=== PATIENT | male | born 1960 | race Native Hawaiian/Other Pacific Islander ===

== ENCOUNTER 2024-12-21 08:17 | Outpatient (AMB) | payer OTHER, SELFPAY ==
[2024-12-21 08:19] VITALS: BP 150/80; PULSE 65; RESP 20; TEMP 36.6; O2SAT 98; BMI 31.2
--- NOTE | 2024-12-21 08:19 | MHC.PC.OV ---
Vital Signs 12/21/24 08:19 12/21/24 09:10 Height 6 ft Weight 230 lb BMI 31.2 BP 150/80 H 140/76 H Blood Pressure Location Lt brachial Rt brachial Position Sitting Sitting Respiration 20 Pulse 65 Pulse Source Pulse Oximeter Temp 97.9 F Temp Source Oral Pulse Oximetry (%) 98 Oxygen Delivery Method Room Air Intake Visit Reasons: Follow up. Intake Note: Pt is here today for follow up visit. Allergies salmon oil Allergy (Verified 12/21/24 08:19) Hives Medication List - Last Reconciled 12/21/24 by Trey Pang, POULTRY CULLER- lisinopril 20 mg PO DAILY 90 days simvastatin 20 mg PO BEDTIME Tobacco use date assessed: 12/21/24 Dental Screening Dental Screen Date: 12/21/24 Did you have a dental visit in the last 12 months?: Yes Did you have a dental problem in the last 6 months where you did not have access to dental care?: No Was dental information given to patient?: Patient has dentist HPI Follow up. HPI Details Chief Complaint Follow-up regarding hypertension History of Present Illness The patient is a 64-year-old male presenting with concerns mainly related to the management of his hypertension. He has not routinely utilized his home blood pressure monitoring device, which is crucial for his management plan. He denies symptoms such as chest pain, respiratory distress, dizziness, visual disturbances, and headaches at this time. The importance of regular monitoring and logging of his blood pressure has been discussed, and he intends to begin this process imminently, with updates to be provided via the portal. #2 cerumen noted bilat. Pt has been using the ear wax kit at home with little results. Social History Health Maintenance - Encouraged use of home blood pressure monitor for regular monitoring and recording of blood pressure readings. Review of Systems - Cardiovascular: Denies chest pain. - Respiratory: Denies shortness of breath. - Neurological: Denies dizziness, headache, weird vision. - Musculoskeletal: Denies swelling of lower extremities. Physical Exam General: Cooperative, healthy appearing, comfortable, no acute distress and well developed Orientation: Patient oriented x3 Limitations: No limitations Head: Normal to inspection Ears: Hearing grossly normal bilaterally, cerumen noted bilat, after ear lavage and use of currette, small residual piece of cerumen noted to right ear canal Nose: Normal external nose present Face and sinus: Normal facial exam Eyes: Appearance normal, both eyes and all related structures Neck: Normal visual inspection and Yes full ROM Respiratory: Normal respiratory effort and able to speak in complete sentences. Clear to auscultation bilaterally Cardiovascular: Regular rate and rhythm. Normal S1 and S2 GI: Normal to inspection. Soft to palpation and nontender Skin: No rashes or lesions noted Neuro: Patient oriented x3 Extremities: Normal to inspection Results Plan Regular monitoring of the patient's blood pressure using a home device was stressed to manage his essential hypertension effectively. Currently, the patient is asymptomatic, which underscores the importance of consistent monitoring to preemptively identify and address any potential issues with blood pressure control. He was advised to initiate this practice immediately and agreed to log the results and send them through the patient portal for ongoing assessment and management continuity. Discussion Notes I discussed with the patient the importance of adhering to regular blood pressure monitoring for optimal management of his essential hypertension, emphasizing the benefits of being proactive in controlling blood pressure and preventing potential complications. The patient has a clear plan to commence recording his blood pressure and sharing the data through our communication portal to facilitate thorough follow-up. The approach was well received, and the patient consented to all recommendations made. Patient Instructions - Begin using your home blood pressure cuff to measure your blood pressure regularly. - Write down your blood pressure readings and bring them to the next appointment or send them via the patient portal. - Contact the medical office if you experience any chest pain, shortness of breath, dizziness, or significant changes in your health. [facility] Medical History (Updated 12/21/24 @ 09:16 by Trey Pang [facility]) Sleep apnea Dyslipidemia HTN (hypertension) Surgical History (Updated 11/05/24 @ 11:38 by Corazon Santamaria) No pertinent past surgical history Social History (System 11/05/24 @ 11:38 by Corazon Santamaria) Housing: House Patient Tobacco Use Status: Never used Tobacco e-Cigarette/Vaping Use: Never Used service: No Current occupational status: employed Current occupational exposures/hazards: No Cognitive needs: No Hearing needs: No Vision needs: No Questionnaire PHQ-9 Over the last 2 weeks, how often have you been bothered by any of the following problems? 1. Little interest or pleasure in doing things: not at all 2. Feeling down, depressed, or hopeless: not at all 3. Trouble falling or staying asleep, or sleeping too much: not at all 4. Feeling tired or having little energy: not at all 5. Poor appetite or overeating: not at all 6. Feeling bad about yourself - or that you are a failure or have let yourself or your family down: not at all 7. Trouble concentrating on things, such as reading the newspaper or watching television: not at all 8. Moving or speaking so slowly that other people could have noticed. Or the opposite - being so fidgety or restless that you have been moving around a lot more than usual: not at all 9. Thoughts that you would be better off or of hurting yourself in some way: not at all Total score: 0 Depression Screening Interpretation: Negative Depression Screening Done: Yes 00706 - PHQ-9 Billing: Yes Source: Developed by Drs. Nikko Christie, Eloisa Dukes, Tacos Jones and colleagues, with an educational jose l from [employer]. Thrive Questionnaire Date Thrive assessed: 12/21/24 I am a: Patient What is your living situation today?: I have a steady place to live Within the past 12 months, did the food you bought not last and you didn't have the money to get more?: Never true Within the past 12 months, did you worry whether your food would run out before you got money to buy more?: Never true Do you have trouble paying for medicines?: No Do you have trouble getting transportation to medical appointments?: No Do you have trouble paying your heating and electricity bill?: No Do you have trouble taking care of your child, family member or friend?: No Do you have trouble with day-to-day activities such as bathing, preparing meals, shopping, managing finances, etc.?: No Are you currently unemployed and looking for a job?: No Are you interested in more education?: No Please select the resources that you would like help with: None Currently or been in a relationship where the following occur: No concerns reported THRIVE Score: 0 AUDIT C Alcohol Use Questionnaire (AUDIT-C) 1. How often do you have a drink containing alcohol?: 2-3 times a week 2. How many drinks containing alcohol do you have on a typical day when you are drinking?: 3 or 4 3. How often do you have six or more drinks on one occasion?: Less than monthly Total Score: 5 GEMA-7 AMB Questionnaire GEAM-7 Date GEMA - 7 assessed: 12/21/24 Feeling nervous, anxious, or on edge: 0 = Not at all Not being able to stop or control worryin = Not at all Worrying too much about different things: 0 = Not at all Trouble relaxin = Not at all Being so restless that it is hard to sit still: 0 = Not at all Becoming easily annoyed or irritable: 1 = Several days Feeling afraid as if something awful might happen: 0 = Not at all Total GEMA-7 score (0-4 normal; 5-9 mild; 10-14 moderate; 15-21 severe): 1 Source: Developed by Drs. Nikko Christie, Eloisa Dukes, Tacos Jones and colleagues, with an educational jose l from [employer]. GEMA-7 Assessment Billing GEMA-7 Assessment Tool: GEMA-7 Assessment 11389 Physical exam (Primary Care) Vital Signs: Last Vital Signs Temp 97.9 F 12/21/24 08:19 Pulse 65 12/21/24 08:19 Resp 20 12/21/24 08:19 BP 140/76 H 12/21/24 09:10 Pulse Ox 98 12/21/24 08:19 Oxygen Delivery Method Room Air 12/21/24 08:19 BMI result Body Mass Index 31.2 Tobacco/Smoking Status: Tobacco use Status Tobacco use date assessed 12/21/24 12/21/24 08:20 Patient Tobacco Use Status Never used Tobacco 12/21/24 08:20 e-Cigarette/Vaping Use Never Used 12/21/24 08:35 PHQ-9: PHQ-9 Score PHQ-9: Total score 0 12/21/24 09:10 Depression Screening Interpretation: Negative Thrive Assessment: Date of Thrive Assessment Date Thrive assessed 12/21/24 12/21/24 08:20 Currently or been in a relationship where the following occur: No concerns reported Office Procedures Cerumen Removal From which ear canal was the cerumen removed: bilateral Removal: irrigation and cerumen loop/spoon Notes: patient tolerated procedure well and no complications 33032-Vva Wax Removal by Spoon/Curette (ear lavage and currette. small piece of cerumen remains to right ear canal. pt will cont with use of drops. TM easily seen to left) Coding Level of Care Code Est Pt Level 3 (77411) Diagnoses HTN (hypertension) I10 Cerumen debris on tympanic membrane of both ears H61.23 CPT Codes Office Procedure - CPT: 67734-Lto Wax Removal by Spoon/Curette ([id number]) Additional Codes GEMA-7 Assessment Billing - GEMA-7 Assessment Tool: GEMA-7 Assessment 36367 ([id number]) PHQ-9 - 56811 - PHQ-9 Billing: Yes ([id number]) Assessment & Plan Assessment & Plan (1) HTN (hypertension): Code(s): I10 - Essential (primary) hypertension Category: Medical (2) Cerumen debris on tympanic membrane of both ears: Code(s): H61.23 - Impacted cerumen, bilateral Category: Medical Plan . Orders: Orders TSH reflex Free T4 Today I10 - Essential (primary) hypertension UA CC w/rflx Micro + Cult Today I10 - Essential (primary) hypertension Lipid Panel Today I10 - Essential (primary) hypertension Complete Blood Count Auto Diff Today I10 - Essential (primary) hypertension Comprehensive Wagoner. Panel Fast Today I10 - Essential (primary) hypertension
[2024-12-21 09:10] VITALS: BP 140/76
== END 2024-12-21 09:45 | disposition home or self-care (01) ==
PROVIDERS: PCP Nurse Practitioner Family; Visit Provider Nurse Practitioner Family
DX: I10 Essential (primary) hypertension (principal); H61.23 Impacted cerumen, bilateral

== ENCOUNTER → 2024-12-21 08:17 | Outpatient (BNVA) | payer OTHER, SELFPAY | PROVIDERS: PCP Nurse Practitioner Family; Visit Provider Nurse Practitioner Family | DX: I10 Essential (primary) hypertension (principal); H61.23 Impacted cerumen, bilateral | CPT/HCPCS: 69210; 96127 ==

== ENCOUNTER 2025-01-14 09:25 | Outpatient (REF) | payer OTHER, SELFPAY ==
--- OUTSIDE RECORDS SUMMARY | 2025-01-14 10:02 | XMS_ITS | Encounter Summary ---
Author Organization [facility] Address [address] [place] [address] Care Team Providers Care Associate Dean Of Women Name Role Phone Nishant Mario MD Primary Care Provider [phone] Shamir Henley PA-C Primary Care Provider [phone] [facility], Pcp Primary Care Provider Unavailabl e Reason for Visit * Reason Onset Date Comments Medication 10/05/2020 colon Encounter Details Date Type Department Care Team Description 10/05/2020 Refill Gastroenterology - [address] [place] [address] Javon Hutchison MD [address] [place] [address] [phone] Medication (colon) Social History Tobacco Use Types Packs/Day Years Used Date Smoking Tobacco: Never Smokeless Tobacco: Never Alcohol Use Standard Drinks/Week Comments Yes 0 (1 standard drink = 0.6 oz pur e alcohol) occ Sex Assigned at Date Recorded Not on file documented as of this encounter Plan of Treatment Not on file documented as of this encounter Visit Diagnoses Not on filedocumented in this encounter Care Teams Associate Dean Of Women Relationship Specialty Start Date End Date Nishant Mario MD [address] [place] [address] [phone] PCP - General Internal Medicine 11/09/19 11/20/20 Shamir Henley PA-C [address] [place] [phone] PCP - General Internal Medicine 11/21/20 12/23/23 [facility], Pcp [address] [place] [phone] PCP - General Internal Medicine 12/24/23 documented as of this encounter
--- OUTSIDE RECORDS SUMMARY | 2025-01-14 10:02 | XMS_ITS | Encounter Summary ---
Author Organization [facility] Address [address] [place] [address] Care Team Providers Care Certified Appliance Service Technician Name Role Phone Piero Serrano MD Primary Care Provider Nishant Matt MD Primary Care Provider [phone] Shamir Henley PA-C Primary Care Provider [phone] [facility], Pcp Primary Care Provider Unavaillillie e Encounter Details Date Type Department Care Team Description 06/18/2018 Release of Information Medical Records [address] [place] [id number] Abstract, Provider Social History Tobacco Use Types Packs/Day Years Used Date Smoking Tobacco: Never Alcohol Use Standard Drinks/Week Comments Yes 0 (1 standard drink = 0.6 oz pur e alcohol) occ Sex Assigned at Date Recorded Not on file documented as of this encounter Plan of Treatment Not on file documented as of this encounter Visit Diagnoses Not on filedocumented in this encounter Care Teams Certified Appliance Service Technician Relationship Specialty Start Date End Date Piero Serrano MD PCP - General Internal Medicine 03/26/18 11/08/19 Nishant Mario MD [address] [place] [address] PCP - General Internal Medicine 11/09/19 11/20/20 Shamir Henley PA-C [address] [place] [address] PCP - General Internal Medicine 11/21/20 12/23/23 [facility], Pcp [address] [place] [phone] PCP - General Internal Medicine 12/24/23 documented as of this encounter
--- OUTSIDE RECORDS SUMMARY | 2025-01-14 10:02 | XMS_ITS | Encounter Summary ---
Author Organization [facility] Address [address] [place] [address] Care Team Providers Care Retail Loss Prevention Officer Name Role Phone Piero Serrano MD Primary Care Provider Nishant Matt MD Primary Care Provider [phone] Shamir Henley PA-C Primary Care Provider [phone] [facility], Pcp Primary Care Provider Unavaillillie e Encounter Details Date Type Department Care Team Description 02/13/2019 [facility] Report Medical Records [address] [place] [address] Yusef Westbrook MD Social History Tobacco Use Types Packs/Day Years Used Date Smoking Tobacco: Never Alcohol Use Standard Drinks/Week Comments Yes 0 (1 standard drink = 0.6 oz pur e alcohol) occ Sex Assigned at Date Recorded Not on file documented as of this encounter Plan of Treatment Not on file documented as of this encounter Visit Diagnoses Not on filedocumented in this encounter Care Teams Retail Loss Prevention Officer Relationship Specialty Start Date End Date Piero Serrano MD PCP - General Internal Medicine 03/26/18 11/08/19 Nishant Mario MD [address] [place] [address] [phone] PCP - General Internal Medicine 11/09/19 11/20/20 Shamir Henley PA-C [address] [place] [address] [phone] PCP - General Internal Medicine 11/21/20 12/23/23 [facility], Pcp [address] [place] [address] PCP - General Internal Medicine 12/24/23 documented as of this encounter
--- OUTSIDE RECORDS SUMMARY | 2025-01-14 10:02 | XMS_ITS | Encounter Summary ---
Author Organization [facility] Address [address] [place] [address] Care Team Providers Care Columnist/Commentator Name Role Phone Piero Serrano MD Primary Care Provider Nishant Matt MD Primary Care Provider [phone] Shamir Henley PA-C Primary Care Provider [phone] [facility], Pcp Primary Care Provider Unavailabl e Reason for Visit * Reason Onset Date Comments APPOINTMENT 10/12/2019 Encounter Details Date Type Department Care Team Description 10/12/2019 Telephone Pulmonology - [place] [address] [facility] [address] [place] [address] Ana Katz [facility] [address] [place] [address] APPOINTMENT Social History Tobacco Use Types Packs/Day Years Used Date Smoking Tobacco: Never Smokeless Tobacco: Never Alcohol Use Standard Drinks/Week Comments Yes 0 (1 standard drink = 0.6 oz pur e alcohol) occ Sex Assigned at Date Recorded Not on file documented as of this encounter Miscellaneous Notes * Telephone Encounter - Sadi Santamaria M.A. - 10/12/2019 4:43 PM EST Left message to call back and confirm appt for 10/14/2019 documented in this encounter Plan of Treatment Not on file documented as of this encounter Visit Diagnoses Not on filedocumented in this encounter Care Teams Columnist/Commentator Relationship Specialty Start Date End Date Piero Serrano MD PCP - General Internal Medicine 03/26/18 11/08/19 Nishant Mario MD [address] [place] [phone] PCP - General Internal Medicine 11/09/19 11/20/20 Shamir Henley PA-C [address] [place] [phone] PCP - General Internal Medicine 11/21/20 12/23/23 [facility], [address] [address] PCP - General Internal Medicine 12/24/23 documented as of this encounter
[2025-01-14 13:29] LABS: MANUAL DIFF FLAG NO
[2025-01-14 13:36] LABS: Basophils Percent Auto 0.7 % (0-2); Eosinophils Absolute Auto 0.2 X10*3/uL (0.0-0.4); Eosinophils Percent Auto 3.5 % (0-4); Hematocrit 43.3 % (42.0-52.0); Hemoglobin 14.8 g/dl (14.0-18.0); Imm Gran Abs Auto 0.02 X10*3/uL (0.00-0.03); Imm Gran Pct Auto 0.4 % (0.0-0.4); Lymphocytes Absolute Auto 1.8 X10*3/uL (1.2-4.9); Mean Corpuscular HGB Conc 34.2 g/dl (31.0-36.0); Mean Corpuscular Volume 90.6 fL (80.0-98.0); Mean Platelet Volume 9.5 fL (9.4-12.4); Monocytes Absolute Auto 0.4 X10*3/uL (0.1-1.2); Monocytes Percent Auto 7.5 % (2-11); Neutrophils Percent Auto 54.9 % (45-73); Platelet Count 382 X10*3/uL (160-400); Red Blood Count 4.78 X10*6/uL (4.60-5.80); Red Cell Distribution Width 13.6 % (11.0-16.0); White Blood Count 5.5 X10*3/uL (4.8-10.8)
[2025-01-14 13:58] LABS: Alanine Aminotransferase 18 U/L (0-40); Alkaline Phosphatase 44 U/L (39-117); Anion Gap 14 (12-20); Aspartate Amino Transferase 27 U/L (5-37); Bilirubin Total 0.4 mg/dL (0.0-1.0); Blood Urea Nitrogen 15 mg/dL (9-16); Carbon Dioxide 22 mmol/L (22-29); Chloride 111 mmol/L (96-108); Cholesterol 179 mg/dL (<200); Estimated Glomerular Filt Rate > 60; Glucose Fasting 96 mg/dL (60-99); HDL Cholesterol 55 mg/dL (>40); LDL Cholesterol Calculated 88 mg/dL (<100); Sodium 143 mmol/L (135-145); Total Protein 6.6 g/dL (6.5-8.0); Triglycerides 181 mg/dL (<150)
[2025-01-14 14:21] LABS: TSH reflex Free T4 0.69 uIU/mL (0.32-4.0)
== END 2025-01-14 09:26 | disposition home or self-care (01) ==
LOC: HO.HMGCLDS 09:25
PROVIDERS: PCP Nurse Practitioner Family; Visit Provider Nurse Practitioner Family
DX: I10 Essential (primary) hypertension (principal)
CPT/HCPCS: 36415; 80053; 80061; 84443; 85025

== ENCOUNTER 2025-01-15 07:20 | Outpatient (REF) | payer OTHER, SELFPAY ==
--- OUTSIDE RECORDS SUMMARY | 2025-01-15 08:24 | XMS_ITS | Encounter Summary ---
Author Organization [facility] Address [address] [place] [address] Care Team Providers Care Dependency Case Manager Name Role Phone Piero Serrano MD Primary Care Provider Nishant Matt MD Primary Care Provider [phone] Shamir Henley PA-C Primary Care Provider [phone] [facility], Pcp Primary Care Provider Unavailabl e Reason for Visit * Reason Comments E-prescribe Rx Request Encounter Details Date Type Department Care Team Description 06/23/2019 Refill Internal Medicine - [address], [address] [place] [address] Piero Serrano MD E-prescribe Rx Request Social History Tobacco Use Types Packs/Day Years Used Date Smoking Tobacco: Never Alcohol Use Standard Drinks/Week Comments Yes 0 (1 standard drink = 0.6 oz pur e alcohol) occ Sex Assigned at Date Recorded Not on file documented as of this encounter Miscellaneous Notes * Telephone Encounter - Mirella Workman M.A. - 06/23/2019 10:47 AM EDT No results found for: CHOL, LDL, HDL, TRIG * Telephone Encounter - Jocelynnchristianne Kim - 06/23/2019 9:19 AM EDT Patient would like script to be: E-PRESCRIBED/FAXED TO PHARMACY WHEN WAS THE PATIENT'S LAST APPOINTMENT IN ADULT MEDICINE? 02/05/19 WHEN WAS THE LAST TIME THE PATIENT SAW THEIR PCP? Same as above Does patient have an upcoming appointment? Yes 08/10/19 (THE MEDICATION REQUESTED IS ON THE MED LIST ABOVE) All of the medications requested were on the CURRENT MEDS list Did you check the Pharmacy information above?: YES Patient wants: 90 -day supply Is this a mail order prescription request ? NO If the refill is from a FAXED refill request what is the RX # listed on the fax? N/A Patients current insurance carrier is: Payor: [employer] ANAHEIM / Plan: The Local $30 STEPAN Re2you /Product Type: HMO [id number] documented in this encounter Plan of Treatment Not on file documented as of this encounter Visit Diagnoses Not on filedocumented in this encounter Care Teams Dependency Case Manager Relationship Specialty Start Date End Date Piero Serrano MD PCP - General Internal Medicine 03/26/18 11/08/19 Nishant Mario MD [address] [place] [address] PCP - General Internal Medicine 11/09/19 11/20/20 Shamir Henley PA-C [address] [place] [address] PCP - General Internal Medicine 11/21/20 12/23/23 Michelle Saldana [address] [place] [phone] PCP - General Internal Medicine 12/24/23 documented as of this encounter
--- OUTSIDE RECORDS SUMMARY | 2025-01-15 08:25 | XMS_ITS | Encounter Summary ---
Author Organization [facility] Address [address] [place] [address] Care Team Providers Care Radiologic Technology Program Director Name Role Phone Shamir Henley PA-C Primary Care Provider [phone] [facility], Pcp Primary Care Provider Unavailabl e Reason for Visit * Reason Comments E-prescribe Rx Request Encounter Details Date Type Department Care Team Description 02/21/2023 Refill Adult Medicine [facility] [address] [place] [phone] Shamir Henley PA-C [address] [place], [place] [phone] E-prescribe Rx Request Social History Tobacco Use Types Packs/Day Years Used Date Smoking Tobacco: Never Smokeless Tobacco: Never Alcohol Use Standard Drinks/Week Comments Yes 0 (1 standard drink = 0.6 oz pur e alcohol) occ, 3x/week, 3 drinks Sex Assigned at Date Recorded Not on file documented as of this encounter Miscellaneous Notes * Telephone Encounter - Magaly Owen M.A. - 02/25/2023 9:32 AM EDT Lab Results Component Value Date CHOL 218 06/15/2022 LDL 106 06/15/2022 HDL 80 06/15/2022 TRIG 160 06/15/2022 SGOT 27 06/15/2022 SGPT 29 06/15/2022 Pending appt with RJ Pastor 03/01/23 * Telephone Encounter - Dayana Israel - 02/21/2023 7:27 AM EDT Patient would like script to be: E-PRESCRIBED/FAXED TO PHARMACY WHEN WAS THE PATIENT'S LAST APPOINTMENT IN ADULT MEDICINE? 09/18/22 WHEN WAS THE LAST TIME THE PATIENT SAW THEIR PCP? Does patient have an upcoming appointment? Yes 03/01/23 (THE MEDICATION REQUESTED IS ON THE MED [...] N/A Patients current insurance carrier is: Payor: KYLEIGH / Plan: PPO $35 MARY [id number] / Product Type: PPO [id number] documented in this encounter Plan of Treatment Not on file documented as of this encounter Visit Diagnoses Not on filedocumented in this encounter Care Teams Radiologic Technology Program Director Relationship Specialty Start Date End Date Shamir Henley PA-C [address] [place] [address] PCP - General Internal Medicine 11/21/20 12/23/23 Michelle Saldana [address] [place] [address] PCP - General Internal Medicine 12/24/23 documented as of this encounter
--- OUTSIDE RECORDS SUMMARY | 2025-01-15 08:26 | XMS_ITS | Clinical Summary ---
Author Organization [facility] Address [address] [place] [address] Care Team Providers Care Prism Measurer Name Role Phone [facility], Pcp Primary Care Provider Unavailabl e Allergies Active Allergy Reactions Severity Noted Date Comments No Known Drug Allergies 11/21/2011 Medications Medication Sig Dispensed Refills Start Date End Date Status CPAP Historical (HISTORICAL CPAP) Inhale into the lungs. [employer] 0 Active simvastatin (ZOCOR) 20 MG tablet Take 1 Tablet by mouth at bedtime. 90 Tablet 1 09/09/2023 Active lisinopril (PRINIVIL,ZESTRIL) 10 MG tablet Take 1 Tablet by mouth daily. 90 Tablet 1 09/09/2023 Active Active Problems Problem Noted Date Hematuria 08/10/2019 Eczema 04/28/2018 Hyperlipidemia 04/28/2018 Hypertension 04/28/2018 [place]LEY on CPAP - mild AHI 5.5 in 04/28 Overview: Comments: CPAP machine at 8cm Immunizations Name Administration Dates Next Due Tdap 06/24/2020 Family History Medical History Relation Name Comments No Known Problems Brother Stroke Father No Known Problems Maternal Grandfather Cigarette Smoking Maternal Grandmother No Known Problems Mother [place] Sister 1 No Known Problems Sister 2 Relation Name Status Comments Brother Alive Father Maternal Grandfather Maternal Grandmother Mother Alive Sister 1 Sister 2 Alive Social History Tobacco Use Types Packs/Day Years Used Date Smoking Tobacco: Never Smokeless Tobacco: Never Tobacco Cessation:Counseling Given: Not Answered Alcohol Use Standard Drinks/Week Comments Yes 0 (1 standard drink = 0.6 oz pur e alcohol) occ, 3x/week, 3 drinks Sex Assigned at Date Recorded Not on file Last Filed Vital Signs Vital Sign Reading Time Taken Comments Blood Pressure 157/77 03/29/2023 1:16 PM EDT Pulse 57 03/29/2023 1:16 PM EDT Temperature 36.3 ??C (97.3 ??F) 03/29/2023 1:16 PM ED T Respiratory Rate 16 03/29/2023 1:16 PM EDT Oxygen Saturation 98% 12/21/2020 3:15 PM EDT Inhaled Oxygen Concentration - - Weight 103 kg (227 lb) 03/29/2023 1:16 PM EDT Height 182.9 cm (6') 03/29/2023 1:16 PM EDT Body Mass Index 30.79 03/29/2023 1:16 PM EDT Plan of Treatment Health Maintenance Due Date Last Done Comments Covid-19 Vaccine (#1) 1960 SHINGLES VACCINE (1 of 2) 2012 BASELINE HEALTH EXAM 40-64 12/21/202212/21, 08/10/2019, 02/05/2019 BMI CHECK/ADVISE 09/02/2024 03/29/2023, , 09/18/2022, Additional history exists INFLUENZA (Season Ended) 2025 PNEUMOCOCCAL VACCINE FOR HIG H RISK PATIENTS (#1) 2027 CHOLESTEROL SCREENING 03/27/2028 03/27/2023 , 06/15/2022, 12/21/2020, Additional history exists DTAP/TDAP/TD (2 - Td or Tdap) 06/24/2030 06/24/2020 COLON CANCER SCREENING 11/14/2030 11/14/2020 HEPATITIS C SCREENING Completed 12/21/2020 Care Teams Prism Measurer Relationship Specialty Start Date End Date [facility], Pcp PCP - General Internal Medicine 12/24/23
[2025-01-15 10:00] LABS: Appearance Urine Clear; Color Urine Yellow; Glucose Urine UA Negative (Negative); Leukocyte Esterase Urine Negative (Negative); Nitrite Urine Negative (Negative); PH 5.5 (5.0-9.0); UMIC TRIGGER UACC YES; Urine Blood Trace (Negative); Urine Ketones 15 mg/dL (Negative); Urine Protein Negative (Neg-Trace)
[2025-01-15 10:04] LABS: Bacteria Urine None Seen (None Seen); Hyaline Casts Urine 0-2 /LPF (0-2); RBC Urine 0-2 /HPF (0-2); Squamous Epithelial Cell Urine 0-2 /HPF (0-2); WBC Urine 0-5 /HPF (0-5)
== END 2025-01-15 07:21 | disposition home or self-care (01) ==
LOC: HO.HMGCLNP 07:20
PROVIDERS: PCP Nurse Practitioner Family; Visit Provider Nurse Practitioner Family
DX: I10 Essential (primary) hypertension (principal)
CPT/HCPCS: 81001; 81003

== ENCOUNTER 2025-01-22 09:50 | Outpatient (REF) | payer OTHER, SELFPAY ==
--- NOTE | ~2025-01-22 | XR_ITS ---
EXAMINATION: XR KNEE, RIGHT CLINICAL INFORMATION: M25.561 - Pain in right knee COMPARISON: None available. TECHNIQUE: AP and lateral views of the right knee. FINDINGS: No acute cortical disruption or malalignment. No lytic or blastic lesion. Mild joint space narrowing medial compartment. Osteophyte formation and/exostosis in the anterior superior and anterior inferior patella. No suprapatellar bursa joint effusion. XR/XR knee RT 2V IMPRESSION: Mild osteoarthrosis involving mostly the medial compartment. Enthesopathy, quadriceps tendon and patellar tendon. Electronically signed by: Harley Brand MD 01/22/2025 10:49 AM EDT
== END 2025-01-22 09:51 | disposition home or self-care (01) ==
LOC: HO.HMGCX 09:50
PROVIDERS: PCP Nurse Practitioner Family; Visit Provider Nurse Practitioner Family
DX: M25.561 Pain in right knee (principal)
CPT/HCPCS: 73560

== ENCOUNTER → 2025-01-22 09:53 | Outpatient (BNV) | payer OTHER, SELFPAY | PROVIDERS: PCP Nurse Practitioner Family; Visit Provider Radiology Diagnostic Radiology | DX: M76.891 Other specified enthesopathies of right lower limb, excluding foot (principal) | CPT/HCPCS: 73560 ==

== ENCOUNTER 2025-03-11 08:19 | Outpatient (REF) | payer OTHER, SELFPAY ==
[2025-03-11 10:31] LABS: Appearance Urine Clear; Glucose Urine UA Negative (Negative); PH 6.0 (5.0-9.0); Specific Gravity - Urine 1.020 (1.005-1.025); UMIC TRIGGER UACC YES
[2025-03-11 11:37] LABS: Alanine Aminotransferase 20 U/L (0-40); Albumin Level 4.5 g/dL (3.5-5.0); Alkaline Phosphatase 46 U/L (39-117); Anion Gap 10 (12-20); Aspartate Amino Transferase 25 U/L (5-37); Blood Urea Nitrogen 16 mg/dL (9-16); Calcium 9.3 mg/dL (8.4-10.2); Carbon Dioxide 26 mmol/L (22-29); Chloride 106 mmol/L (96-108); Estimated Glomerular Filt Rate > 60; Potassium 4.3 mmol/L (3.3-5.1); Sodium 138 mmol/L (135-145); Total Protein 7.1 g/dL (6.5-8.0)
== END 2025-03-11 08:20 | disposition home or self-care (01) ==
LOC: HO.HMGCLDS 08:19
PROVIDERS: PCP Nurse Practitioner Family; Referring Provider Nurse Practitioner Family
DX: I10 Essential (primary) hypertension (principal); Z12.5 Encounter for screening for malignant neoplasm of prostate
CPT/HCPCS: 36415; 80053; 81001; 84153; 99211

== ENCOUNTER 2025-04-12 07:00 | Outpatient (RCR) | payer OTHER, SELFPAY ==
--- NOTE | 2025-03-22 11:44 | MHC.PT.EP ---
[facility] [place] Office [place] Office [place] Office [address] [phone] F: [phone] F: [phone] F: [phone] F: [phone] Physical Therapy Plan of Care Date of Evaluation: 03/22/25 Date of Surgery: Diagnosis: pain in right knee. Assessment: Patient is a 64 year old R handed male who presents with s/s consistent with R knee pain. He works with daily job demands including [employer]. Patient past medical history is otherwise unremarkable. Current impairments include pain, ROM, strength, activity tolerance and functional mobility. Functional limitations include decreased ability to sleep, ski, negotiate stairs and drive. Patient is motivated with good rehab potential. Skilled PT will address impairments and functional limitations in order to achieve goals. 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 Manual therapy to restore motion and function. Therapeutic exercise to improve strength and flexibility. Neuromuscular re-education for posture and balance. Therapeutic activities to return to functional activities of daily living. Electronically signed by: Alireza Tomas, PT Please sign and return to therapist. Thank you for your referral.
--- NOTE | 2025-07-01 11:52 | MHC.PT.DC ---
[facility] [place] Office [place] Office [place] Office [address] Shane Odell [address] [phone] F: [phone] F: [phone] F: [phone] F: [phone] Physical Therapy Discharge Report Diagnosis: pain in right knee. Date of Surgery: Date of Evaluation: 03/22/25 Date of Discharge: 04/22/25 Treatments to Date: 2 Cancellations to Date: No Shows to Date: Discharge Status: Patient Elected to Stop Discharge Summary: 04/12/25: pt with recommended motion control footwear. to have long drive next week. to call back after if needed. hep updated and all questions answered. co-pay impacting plan. Patient is a 64 year old R handed male who presents with s/s consistent with R knee pain. He works with daily job demands including [employer]. Patient past medical history is otherwise unremarkable. Current impairments include pain, ROM, strength, activity tolerance and functional mobility. Functional limitations include decreased ability to sleep, ski, negotiate stairs and drive. Patient is motivated with good rehab potential. Skilled PT will address impairments and functional limitations in order to achieve goals. Electronically signed by: Alireza Tomas, PT Please sign and return to therapist. Thank you for your referral.
== END 2025-07-01 11:52 | disposition home or self-care (01) ==
LOC: HO.PTCHIC 07:00
PROVIDERS: PCP Nurse Practitioner Family; Visit Provider Nurse Practitioner Family
DX: M25.561 Pain in right knee (principal)
CPT/HCPCS: 97110; 97161

== ENCOUNTER 2025-06-23 09:50 | Outpatient (AMB) | payer OTHER, SELFPAY ==
--- NOTE | 2025-06-23 10:02 | MHC.PC.OV ---
Vital Signs 06/23/25 10:04 Height 6 ft Weight 228 lb BMI 30.9 BP 130/80 Blood Pressure Location Rt brachial Position Sitting Respiration 16 Pulse 66 Pulse Source Pulse Oximeter Pulse Oximetry (%) 98 Oxygen Delivery Method Room Air Intake Visit Reasons: PE Material Clerk Required: No Accompanied by: Self / Same As Patient Allergies salmon oil Allergy (Verified 03/11/25 10:57) Hives amlodipine Adverse Reaction (Intermediate, Verified 06/23/25 10:11) Chills Medication List - Last Reconciled 06/23/25 by Trey Pang [facility] lisinopril 40 mg PO DAILY 90 days metoprolol succinate ER 25 mg PO DAILY 30 days simvastatin 20 mg PO BEDTIME Tobacco use date assessed: 12/21/24 Dental Screening Dental Screen Date: 06/23/25 Did you have a dental visit in the last 12 months?: Yes Did you have a dental problem in the last 6 months where you did not have access to dental care?: No Was dental information given to patient?: Patient has dentist HPI PE HPI Details History of Present Illness The patient is a 65-year-old male presenting for a physical examination. He reports that his colon cancer screening is up to date, and he is actively monitoring his blood pressure, planning to send future readings along with heart rates. His PSA screening is also current, and labs have been ordered, which require fasting. The patient denies experiencing any chest pain, dyspnea, abdominal pain, headaches, blurred vision, hematochezia, constipation, diarrhea, or any suicidal or homicidal ideations. He reports feeling well overall and has stable blood pressure readings today. An umbilical hernia was noted during the examination, but the rest of the exam was benign. Hx of sleep apnea. Cpap he is using is approx 10 years old, needs repair. Will refer for repeat sleep study and new machine. The patient declines all vaccinations at this time. Health Maintenance - Colon cancer screening is up to date - PSA screening is up to date - Blood pressure monitoring ongoing - Declines all vaccinations Social History Review of Systems - Cardiovascular: Denies chest pain, denies dyspnea - Gastrointestinal: Denies abdominal pain, denies hematochezia, denies constipation, denies diarrhea - Neurological: Denies headaches, denies blurred vision - Psychiatric: Denies suicidal ideation, denies homicidal ideation Physical Exam General: Cooperative, healthy appearing, comfortable, no acute distress and well developed Orientation: Patient oriented x3 Limitations: No limitations Head: Normal to inspection Ears: Hearing grossly normal bilaterally Nose: Normal external nose present Face and sinus: Normal facial exam Eyes: Appearance normal, both eyes and all related structures Neck: Normal visual inspection and Yes full ROM Respiratory: Normal respiratory effort and able to speak in complete sentences. Clear to auscultation bilaterally Cardiovascular: Regular rate and rhythm. Normal S1 and S2 GI: Normal to inspection. Soft to palpation and nontender. Umbilical hernia noted : testicles without masses/lesions and no hernias appreciated Skin: No rashes or lesions noted Neuro: Patient oriented x3 Extremities: Normal to inspection Results Plan 1. Umbilical Hernia The patient has an umbilical hernia noted during the examination. Currently, no specific intervention was discussed during the visit. 2. Preventative Care The patient is up to date with colon cancer screening and PSA screening. He is advised to continue monitoring his blood pressure and report future readings. The patient declines all vaccinations at this time. Discussion Notes Patient Instructions - Continue monitoring blood pressure and send future readings with heart rates. - Labs have been ordered and should be completed fasting. [facility] Medical History (Updated 06/23/25 @ 10:20 by NANCY HwangLONDON) Sleep apnea Dyslipidemia HTN (hypertension) Surgical History No pertinent past surgical history Social History Housing: House Patient Tobacco Use Status: Never used Tobacco e-Cigarette/Vaping Use: Never Used service: No Current occupational status: employed Current occupational exposures/hazards: No Cognitive needs: No Hearing needs: No Vision needs: No Questionnaire PHQ-9 Over the last 2 weeks, how often have you been bothered by any of the following problems? 1. Little interest or pleasure in doing things: not at all 2. Feeling down, depressed, or hopeless: not at all 3. Trouble falling or staying asleep, or sleeping too much: not at all 4. Feeling tired or having little energy: not at all 5. Poor appetite or overeating: not at all 6. Feeling bad about yourself - or that you are a failure or have let yourself or your family down: not at all 7. Trouble concentrating on things, such as reading the newspaper or watching television: not at all 8. Moving or speaking so slowly that other people could have noticed. Or the opposite - being so fidgety or restless that you have been moving around a lot more than usual: not at all 9. Thoughts that you would be better off or of hurting yourself in some way: not at all Total score: 0 Depression Screening Interpretation: Negative Depression Screening Done: Yes 45563 - PHQ-9 Billing: Yes Source: Developed by Drs. Nikko Christie, Eloisa Dukes, Tacos Jones and colleagues, with an educational jose l from [employer]. Thrive Questionnaire Date Thrive assessed: 12/20/24 I am a: Patient What is your living situation today?: I have a steady place to live Within the past 12 months, did the food you bought not last and you didn't have the money to get more?: Never true Within the past 12 months, did you worry whether your food would run out before you got money to buy more?: Never true Do you have trouble paying for medicines?: No Do you have trouble getting transportation to medical appointments?: No Do you have trouble paying your heating and electricity bill?: No Do you have trouble taking care of your child, family member or friend?: No Do you have trouble with day-to-day activities such as bathing, preparing meals, shopping, managing finances, etc.?: No Are you currently unemployed and looking for a job?: No Are you interested in more education?: No Please select the resources that you would like help with: None Currently or been in a relationship where the following occur: No concerns reported THRIVE Score: 0 GEMA-7 AMB Questionnaire GEMA-7 Date GEMA - 7 assessed: 06/23/25 Feeling nervous, anxious, or on edge: 0 = Not at all Not being able to stop or control worryin = Not at all Worrying too much about different things: 0 = Not at all Trouble relaxin = Not at all Being so restless that it is hard to sit still: 0 = Not at all Becoming easily annoyed or irritable: 0 = Not at all Feeling afraid as if something awful might happen: 0 = Not at all Total GEMA-7 score (0-4 normal; 5-9 mild; 10-14 moderate; 15-21 severe): 0 Source: Developed by Drs. Nikko Christie, Eloisa Dukes, Tacos Jones and colleagues, with an educational jose l from [employer]. GEMA-7 Assessment Billing GEMA-7 Assessment Tool: GEMA-7 Assessment 31037 Physical exam (Primary Care) Vital Signs: Last Vital Signs Pulse 66 06/23/25 10:04 Resp 16 06/23/25 10:04 BP 130/80 06/23/25 10:04 Pulse Ox 98 06/23/25 10:04 Oxygen Delivery Method Room Air 06/23/25 10:04 BMI result Body Mass Index 30.9 Tobacco/Smoking Status: Tobacco use Status Tobacco use date assessed 12/21/24 06/23/25 10:09 Patient Tobacco Use Status Never used Tobacco 06/23/25 10:09 e-Cigarette/Vaping Use Never Used 06/23/25 10:09 PHQ-9: PHQ-9 Score PHQ-9: Total score 0 06/23/25 10:17 Depression Screening Interpretation: Negative Thrive Assessment: Date of Thrive Assessment Date Thrive assessed 12/20/24 06/23/25 10:09 Currently or been in a relationship where the following occur: No concerns reported Coding Level of Care Code Est Pt Level 3 (58126) Est Pt Prev Care 40-64y(59368) Diagnoses Physical exam Z00.00 HTN (hypertension) I10 Sleep apnea G47.30 Vitamin D deficiency E55.9 Additional Codes GEMA-7 Assessment Billing - GEMA-7 Assessment Tool: GEMA-7 Assessment 79073 ([id number]) PHQ-9 - 65588 - PHQ-9 Billing: Yes ([id number]) Assessment & Plan Assessment & Plan (1) Physical exam: Code(s): Z00.00 - Encounter for general adult medical examination without abnormal findings Category: Medical (2) HTN (hypertension): Code(s): I10 - Essential (primary) hypertension Category: Medical (3) Sleep apnea: Code(s): G47.30 - Sleep apnea, unspecified Category: Medical (4) Vitamin D deficiency: Code(s): E55.9 - Vitamin D deficiency, unspecified Category: Medical Plan . Orders: Orders Comprehensive [place]. Panel Fast Today Z00.00 - Encounter for general adult medical examination without abnormal findings UA CC w/rflx Micro + Cult Today Z00.00 - Encounter for general adult medical examination without abnormal findings Vitamin D 25-OH Total Today E55.9 - Vitamin D deficiency, unspecified Complete Blood Count Auto Diff Today Z00.00 - Encounter for general adult medical examination without abnormal findings TSH reflex Free T4 Today Z00.00 - Encounter for general adult medical examination without abnormal findings Lipid Panel Today Z00.00 - Encounter for general adult medical examination without abnormal findings Referrals Sleep Medicine Referral G47.30 - Sleep apnea, unspecified
[2025-06-23 10:04] VITALS: BP 130/80; PULSE 66; RESP 16; O2SAT 98; BMI 30.9
== END 2025-06-23 10:32 | disposition home or self-care (01) ==
LOC: HO.HMCC 09:51
PROVIDERS: PCP Nurse Practitioner Family; Visit Provider Nurse Practitioner Family
DX: Z00.00 Encounter for general adult medical examination without abnormal findings (principal); I10 Essential (primary) hypertension; G47.30 Sleep apnea, unspecified; E55.9 Vitamin D deficiency, unspecified

== ENCOUNTER → 2025-06-23 09:50 | Outpatient (BNVA) | payer OTHER, SELFPAY | PROVIDERS: PCP Nurse Practitioner Family; Visit Provider Nurse Practitioner Family | DX: Z00.00 Encounter for general adult medical examination without abnormal findings (principal); K42.9 Umbilical hernia without obstruction or gangrene; G47.30 Sleep apnea, unspecified; I10 Essential (primary) hypertension; E55.9 Vitamin D deficiency, unspecified; Z99.89 Dependence on other enabling machines and devices | CPT/HCPCS: 96127 ==

== ENCOUNTER 2025-08-23 06:39 | Outpatient (AMB) | payer OTHER, SELFPAY ==
--- OUTSIDE RECORDS SUMMARY | 2025-08-23 06:43 | XMS_ITS ---
Author Name [facility] Organization Unknown Care Team Organization Name Specialty Phone Email Start Date End Da te [facility] Sherri Diaz [facility] 06/05/2023 04/20/20 [facility] Estefanía aHmilton [facility] 11/07/2022 04/20/2024 [facility] Termed, PROVIDER Primary Care 07/10/202204/02
--- NOTE | 2025-08-23 07:10 | A.OFFPC_ITS ---
Intake Visit Reasons: Stomach issues Allergies salmon oil Allergy (Verified 03/11/25 10:57) Hives amlodipine Adverse Reaction (Intermediate, Verified 06/23/25 10:11) Chills Medication List - Last Reconciled 08/23/[address] [facility]- lisinopril 40 mg PO DAILY 90 days metoprolol succinate ER 25 mg PO DAILY 30 days pantoprazole 20 mg PO DAILY 30 days simvastatin 20 mg PO BEDTIME Tobacco use date assessed: 12/21/24 Dental Screening Dental Screen Date: 06/23/25 HPI Stomach issues HPI Details History of Present Illness The patient is a 65 year old male presenting for a follow-up visit for abdominal discomfort and GERD-type symptoms. He reports long-standing acid reflux. He describes a generalized, dull abdominal discomfort that is not localized and can sometimes be associated with eating. He has a history of taking a lot of ibuprofen and had a couple of episodes of black stool in the past, which have since resolved. He denies painful defecation, diarrhea, and constipation. Review of Systems - Cardiovascular: Denies chest pain. - Respiratory: Denies shortness of breat h. - Gastrointestinal: Reports acid reflux and generalized, dull abdominal di scomfort. - He has a history of black stools which have ceased. - Denies painful defecation, diarrhea, c onstipation, nausea, vomiting, or hematemesis. Plan 1. Gastroesophageal Reflux Disease A trial of a proton-pump inhibitor (PPI) will be initiated for his GERD symptoms and abdominal discomfort. It was also recommended that he consider taking an [id number] probiotic. He will follow up in three to four weeks to report on his symptoms. Discussion Notes I discussed initiating a proton-pump inhibitor (PPI) for the patient's symptoms of acid reflux and abdominal discomfort. I also explained that he could consider taking an gxnw-swe-bynecla probiotic. I advised him to report back in three to four weeks to provide an update on how he is doing. Patient Instructions - Start taking the new medication, a pro ton-pump inhibitor (PPI), to help with your acid reflux and stomach discomfort. - You can also try taking a probiotic, w hich can be purchased [id number] at a pharmacy. - Please contact the office in about 3 t o 4 weeks to let us know how your symptoms are. PFSH Medical History Sleep apnea Dyslipidemia HTN (hypertension) Surgical History No pertinent past surgical history Social History Housing: House Patient Tobacco Use Status: Never used Tobacco e-Cigarette/Vaping Use: Never Used service: No Current occupational status: employed Current occupational exposures/hazards: No Cognitive needs: No Hearing needs: No Vision needs: No Questionnaire Thrive Questionnaire Date Thrive assessed: 12/20/24 I am a: Patient What is your living situation today?: I have a steady place to live Within the past 12 months, did the food you bought not last and you didn't have the money to get more?: Never true Within the past 12 months, did you worry whether your food would run out before you got money to buy more?: Never true Do you have trouble paying for medicines?: No Do you have trouble getting transportation to medical appointments?: No Do you have trouble paying your heating and electricity bill?: No Do you have trouble taking care of your child, family member or friend?: No Do you have trouble with day-to-day activities such as bathing, preparing meals, shopping, managing finances, etc.?: No Are you currently unemployed and looking for a job?: No Are you interested in more education?: No Currently or been in a relationship where the following occur: No concerns reported THRIVE Score: 0 GEMA-7 AMB Questionnaire GEMA-7 Date GEMA - 7 assessed: 06/23/25 Source: Developed by Drs. Nikko Christie, Eloisa Dukes, Tacos Jones and colleagues, with an educational jose l from [employer]. Physical exam (Primary Care) Tobacco/Smoking Status: Tobacco use Status Tobacco use date assessed 12/21/24 06/23/25 10:09 Patient Tobacco Use Status Never used Tobacco 06/23/25 10:09 e-Cigarette/Vaping Use Never Used 06/23/25 10:09 Thrive Assessment: Date of Thrive Assessment Date Thrive assessed 12/20/24 06/23/25 10:09 Currently or been in a relationship where the following occur: No concerns reported Telehealth Telehealth [facility] Location of provider rendering services: practice address Location of patient: address on file Patient Identification confirmed using: Name, : Yes Telehealth method: video Patient verbally consented to treatment: Yes Patient verbally consented to billing insurance company: Yes Patient informed of any privacy concerns related to visit: Yes Minutes spent on Phone/Video with Pt.: 12 Coding Level of Care Code Tele Est Pt Level 3 (38636) Diagnoses GERD (gastroesophageal reflux disease) K21.9 Assessment & Plan Assessment & Plan (1) GERD (gastroesophageal reflux disease): Code(s): K21.9 - Gastro-esophageal reflux disease without esophagitis Category: Medical Plan . Medications: New pantoprazole 20 mg PO DAILY 30 days 30 tabs 3RF pantoprazole 20 mg PO DAILY 30 tabs 3RF 30 days
== END 2025-08-23 09:13 | disposition home or self-care (01) ==
LOC: HO.HMCC 06:40
PROVIDERS: PCP Nurse Practitioner Family; Visit Provider Nurse Practitioner Family
DX: K21.9 Gastro-esophageal reflux disease without esophagitis (principal)